=== PATIENT | male | born 1965 | race Caucasian/White ===

== ENCOUNTER → 2017-02-12 | Outpatient (CLI) | payer MEDICARE, MEDICAID ==
[~2017-02-12] VITALS: Ht 188 cm; Wt 113.6 kg
[~2017-02-12] MED LIST: ACET-44 PO; ACET500T67 PO; AMLO5TAB2 PO; ASCO-296 PO; CALC-524 PO; CHLO4TAB28 PO; CLOT15CR64 TOP; DIPH25CA6 PO; LISI1TAB13 PO; LOPE2TAB24 PO; MAGN400O4 PO; MULT1TAB58 PO; REGADENOSON 0.4mg/5ml INJECTION IV ONE; RISP0.5T14 PO; SALINE FLUSH 10ml SYRINGE ONE; VITA-282 PO; [UNRECOGNIZED DRUG - CODE] PO; [UNRECOGNIZED DRUG - CODE] PO
--- NOTE | 2017-02-14 07:52 | ESTF ---
DATE 02/12/[address] Sandee Madrigal PROCEDURE Stress nuclear scan. INDICATION Atypical chest pain. DESCRIPTION OF PROCEDURE The patient was injected with technetium-99m Myoview dose of 13 mCi at rest. The patient was unable to fully exercise on treadmill dues to shuffling gait. He was injected with Lexiscan with a low-level exercise and did not experience any angina. Lexiscan dose of 0.4 mg followed by technetium-99m Myoview dose of 30.4 mCi. Stress and rest perfusion images were obtained per protocol. Blood pressure was 118/77, heart rate of 84 beats per minute. Blood pressure katt to 129/76. Heart rate katt to 147 beats per minute which is 87% of age-predicted maximum heart rate. Rest EKG showed normal sinus rhythm, nonspecific ST-T abnormality in lateral and inferolateral distribution. Subsequently during the stress test and extending into three minutes of recovery, there was up to [address] segment depression in V2 through V6. The patient did have a run of ventricular bigeminy. ST depression was horizontal. There was no associated chest pain or palpitations and he was asymptomatic. Stress and perfusion images were reviewed. Technical quality is somewhat limited by motion artifact, particularly present on stress images. There were no significant perfusion defects identified. No evidence of ischemia, reversible ischemia or scar. Normal contractility. Normal ejection fraction, measured 54% on stress images and 72% on rest images. TID ratio appears visually normal. Unable to measure due to motion artifact. No abnormal extracardiac uptake was identified. IMPRESSION: 1. Inability to fully exercise on treadmill. 2. Pharmacological/low-level exercise stress nuclear scan clinically negative for angina. 3. Electrically positive with up to [address] segment depression as described above that persisted into recovery and was associated with a run of ventricular bigeminy. Patient was asymptomatic however. 4. Stress and rest perfusion images do not show any significant perfusion defect. There was motion artifact present, however. 5. Gated images show normal wall motion, normal contractility. DISCUSSION AND PLAN Will discuss results with the patient regarding further management. [facility]
== END ==
LOC: IMA 08:57
PROVIDERS: ATTEND Internal Medicine Cardiovascular Disease
DX: R94.39 Abnormal result of other cardiovascular function study (principal); R26.2 Difficulty in walking, not elsewhere classified; I10 Essential (primary) hypertension
CPT/HCPCS: 78452; 93017; A9502; J2785

== ENCOUNTER 2017-02-22 09:32 | Emergency (ER) | payer MEDICARE, MEDICAID ==
[~2017-02-22] VITALS: Ht 188 cm; Wt 97.6 kg
[~2017-02-22 09:32] MED LIST changes: -REGADENOSON 0.4mg/5ml INJECTION IV ONE; -SALINE FLUSH 10ml SYRINGE ONE
--- OUTSIDE RECORDS SUMMARY | 2017-02-22 09:37 | XMS REPORT | Referral Summary ---
Author Author [facility] Organization [facility] Address Unknown Phone Unavailable Care Team Providers Care Solar Sales Consultant Name Role Phone Silvino Madrigal Primary Care Physician [phone] Encounter VC Date(s): 07/22/15 - 07/22/15 [facility] [address] [place] [id number] Discharge Disposition: 01-Home or Self Care Attending Physician: Sandee Madrigal MD Admitting Physician: Sandee Madrigal MD Vital Signs No data available for this section Problem List Condition Effective Dates Status Health Status Informant Allergic rhinitis Active (disorder)(Confirmed ) back pain with Resolved scoliosis(Confirmed) Backache Active (finding)(Confirmed) Essential Active hypertension(Confirm ed) Fragile X syndrome Active (disorder)(Confirmed ) Fragile X Resolved syndrome(Confirmed) Idiopathic scoliosis Active AND/OR kyphoscoliosis (disorder)(Confirmed ) 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)(Confirmed ) Moderate mental Resolved retardation(Confirme d) Obesity(Confirmed) Active patient Shoulder joint pain Active (finding)(Confirmed) Athlete's Active foot(Confirmed) Allergies, Adverse Reactions, Alerts No Known Medication Allergies Medications Cerovite Advanced Formula 1 tabs, Oral, Daily, 0 Refill(s) Start Date: 04/26/14 Status: Ordered Claritin 10 mg oral tablet 10 mg 1 tabs, Oral, Daily, # 30 tabs, 5 Refill(s), 1 tabs Oral Daily Start Date: 06/24/15 Status: Ordered clotrimazole 1% topical cream 1 martell, Topical, BID, x4 weeks, # 30 g, 1 Refill(s), Pharmacy: [facility] [place] Start Date: 06/15/15 Stop Date: 06/15/16 Status: Ordered diphenhydrAMINE 25 mg, Oral, q4hr, as needed for allergy symptoms, 0 Refill(s) Start Date: 04/26/14 Status: Ordered lisinopril-hydrochlorothiazide 20 mg-25 mg oral tablet 1 tabs, Oral, Daily, # 90 tabs, 1 Refill(s), Pharmacy: [facility] [place] Start Date: 04/05/15 Status: Ordered Maalox Antacid Barrier 500 mg oral tablet, chewable 2 tabs, Chewed, q4hr, 0 Refill(s) Start Date: 04/26/14 Status: Ordered Milk of Magnesia 30cc, Oral, Daily, as needed for constipation, 0 Refill(s) Start Date: 12/07/14 Status: Ordered Norvasc 5 mg oral tablet 5 mg 1 tabs, Oral, Daily, # 30 tabs, 5 Refill(s), Pharmacy: [facility] [place], 1 tabs Oral Daily Start Date: 04/05/15 Status: Ordered Oyster Shell 500 (1250 mg calcium carbonate) oral tablet 250 mg, Oral, Daily, # 30 Each, 0 Refill(s), Pharmacy: [facility] [place] , 250 mg Oral Daily Start Date: 06/17/15 Status: Ordered risperiDONE 0.5 mg oral tablet 1 tabs, Oral, BID, # 180 tabs, 0 Refill(s) Start Date: 04/26/14 Status: Ordered Tylenol Extra Strength 500 mg oral tablet 1,000 mg 2 tabs, Oral, TID, # 180 tabs, 0 Refill(s), Pharmacy: [facility] [place], 2 tabs Oral TID Start Date: 09/13/15 Status: Ordered Vitamin C 1,000 mg, Oral, Daily, 0 Refill(s) Start Date: 06/24/15 Status: Ordered vitamin E 400 intl units oral capsule 400 Intl_Units, Oral, Daily, # 30 caps, 0 Refill(s), Pharmacy: [facility] [place], 400 Intl_Units Oral Daily Start Date: 06/17/15 Status: Ordered Results No data available for this section Immunizations Vaccine Date Refusal Reason influenza virus vaccine, inactivated 08/25/14 influenza virus vaccine, live 09/01/13 pneumococcal 23-polyvalent vaccine 12/18/13 tetanus/diphtheria/pertussis, acel(Tdap) 11/02/13 tetanus-diphth toxoids (Td) adult/adol 07/28/02 Procedures Procedure Date Related Diagnosis Body Site Hernia repair Social History Social History Type Response Smoking Status Never smoker Assessment and Plan No data available for this section
--- OUTSIDE RECORDS SUMMARY | 2017-02-22 09:37 | XMS REPORT | Referral Summary ---
Author Author [facility] Organization [facility] Address Unknown Phone Unavailable Care Team Providers Care Seo Engineer Name Role Phone Silvino Madrigal Primary Care Physician [phone] Encounter Date(s): 06/24/15 - 06/24/15 [facility] [address] [place] [id number] Discharge Diagnosis: Athlete's foot Discharge Diagnosis: Mild mental retardation (I.Q. 50-70) Discharge Diagnosis: Essential hypertension Discharge Diagnosis: Allergic rhinitis Discharge Diagnosis: Diarrhea Discharge Diagnosis: Backache Discharge Disposition: 01-Home or Self Care Attending Physician: Tianna Herrera APRN Admitting Physician: Tianna Herrera APRN Vital Signs Most recent to 1 oldest [Reference Range]: Temperature Tympanic 36.3 degC [36.6-38.1 degC] *LOW* (06/24/15 10:31 AM) Peripheral Pulse 64 bpm Rate [60-100 bpm] (06/24/15 10:31 AM) Respiratory Rate 16 br/min [14-20 br/min] (06/24/15 10:31 AM) Blood Pressure 112/80 mmHg [90-140/60-90 mmHg] (06/24/15 10:31 AM) Problem List Condition Effective Dates Status Health [...] 30 g, 1 Refill(s), Pharmacy: [facility] [place] Start Date: 06/15/15 Stop Date: 06/15/16 Status: [...] Smoking Status Never smoker Assessment and Plan Extracted from: Title: Office Visit Note 6 mos Author: Tianna Herrera PACKAGE SEALER Date: check Assessment/Plan Allergic rhinitis stop allergy tab. Change to Claritin 10 mg daily. May cause less drowsiness. Ordered: Office Visit Level 4 Est 59328 Athlete's foot continue Lotrimin routinely. Ordered: Office Visit Level 4 Est 89990 Backache continue Tylenol thousand milligrams 3 times a day routinely. This is relatively safe long-term. DC prn tylenol. Recommend physical therapy evaluation and treatment for back pain. Ordered: Office Visit Level 4 Est 84514 Diarrhea today. Let me know if this persists. Ordered: Office Visit Level 4 Est 71352 Essential hypertension continue same. Request staff check blood pressure once a month. If greater than 150/90 let us know. due for fasting lipids and CMP. F/u in 6 mos Flu shot this fall. Ordered: Office Visit Level 4 Est 20992 Mild mental retardation (I.Q. 50-70) Cont care at [facility]. Ordered: Office Visit Level 4 Est 90850 Orders: acetaminophen, 1,000 mg 2 tabs, Oral, TID, # 180 tabs, 1 Refill(s), 2 tabs Oral TID loratadine, 10 mg 1 tabs, Oral, Daily, # 30 tabs, 5 Refill(s), 1 tabs Oral Daily
--- OUTSIDE RECORDS SUMMARY | 2017-02-22 09:37 | XMS REPORT | Continuity of Care Document ---
Author Author [facility] Address Unknown Phone Unavailable Support Name Relationship Address Phone JAY CHOU MD Caregiver [address] [place], [place] [address] GLO VELASCO Next Of Kin [address] [place] [address] Insurance Providers Payer Name Policy Number Subscriber Name Relationship Medicare A And B [id number] Guido Webb 18 Self / Same As Patient Advance Directives Directive Response Recorded Date/Time Advanced Directives No 04/14/16 10:36pm Chief Complaint and Reason for Visit Chief Complaint Pain Reason for Visit [id number] Problems Active Problems Medical Problem Onset Date Status Leg edema, left ~04/14/2016 Acute Medications Current Home Medications Medication Dose Units Route Directions Days/Qty Instructions Start Date Calcium Carbonate/Vitamin D3 1 Each 1 Each ORAL Daily 04/14/16 Multivitamin/Iron/Folic Acid 1 Each 1 Each ORAL Daily 04/14/16 Loratadine 10 Mg 10 Mg ORAL Daily 04/14/16 Ascorbate Calcium 500 Mg 500 Mg ORAL Daily 04/14/16 Acetaminophen (Tylenol) 500 Mg 1,000 Mg ORAL Three Times A Day 04/14 Risperidone 4 Mg Unknown Dose ORAL Twice A Day 04/14/16 Lisinopril/Hydrochlorothiazide 1 Each Unknown Dose ORAL Daily Amlodipine Besylate (Norvasc) 2.5 Mg Unknown Dose ORAL Daily 04/14 Cephalexin 500 Mg 500 Mg ORAL Three Times A Day 10 Days 04/15/16 Social History Query Response Start Date Stop Date Smoking Status Never smoker Hospital Discharge Instructions No hospital discharge instructions. Plan of Care Discharge Date 04/15/16 12:58am Disposition 01 HOME OR SELF-CARE Condition at Discharge Stable Instructions/Education Provided Leg Edema (ED) Prescriptions See Medication Section Additional Instructions/Education Elevate Left leg above level of heart as much as possible. Keflex 500mg as Rx'd, three times a day for 10 days. Return at 0715 Saturday morning (in 6 hours) for an ultrasound of Left leg, to rule out deep vein thrombosis (DVT). If ultrasound is Positive, he'll need to be admitted for a few days, for anticoagulation. If ultrasound is Negative (normal), he can go home and follow up with his regular PCP in 2 days. Some of your test results may not be complete prior to your leaving the Emergency Department. The Emergency Department is not authorized to give test results over the phone. Please contact the doctor's office listed in this packet of information for your final results. Follow up with your primary care physician or return to the Emergency Department for worsening or worrisome symptoms. * Emergency Department phone number: [phone], x [phone]* MEDICAL RECORD If you need copies of your X-rays, call [phone]. If you need copies of your medical record, including lab results, a signed authorization for release of records will be required. A telephone call for release of Health Information is not allowed. BILLING Billing can sometimes be confusing and frustrating. To help avoid confusion in the future, please take a moment to acquaint yourself with the billing parties for services. SERVICE BILLING DEMOCRAT Emergency Room Services [facility] Physician Services [facility] X-rays [place] [facility] Patients will receive bills for services from the appropriate provider. If you have any questions about your [facility] bill, our staff will be happy to assist you. Please call [phone], and ask for the billing department. THANK YOU for choosing [facility] as your emergency care provider! Care Plan and Goals ~~Discharge Care Plan~~ Problem: Edema, Left leg pain Goal: Edema will resolve and patient will be w/o pain. Instructions: Follow ED-Physician instructions, return in 0715 for Ultra sound of Left leg. Return to ER if pain increases, patient has SOA or chest pain. Call ED number on Education given if you have and questions. Functional Status No functional status results. Allergies, Adverse Reactions, Alerts No known allergies. Immunizations Name Given Type Status Date Influenza Vaccine Received if Current 08/06/15 Historical Historical Vital Signs Acute Vital Signs Vital Response Date/Time Temperature (Fahrenheit) 97.6 04/14/2016 10:36pm Pulse 88 bpm 04/15/2016 1:02am Respirations 04/15/2016 1:02am Height 6 ft 1 in Weight 231 lb Body Mass Index 30.0 kg/m^2 Results Laboratory Results Test Name Result Units Flags Reference Collection Date/Time Result Date/ Time Comments White Blood Count 6.96 10^3uL 4.0-11.0 04/14/2016 11:35pm 04/14/2016 11 :44pm Red Blood Count 4.61 10^6uL 4.50-5.50 04/14/2016 11:35pm 04/14/2016 11: 44pm Hemoglobin 14.4 g/dL 13.5-17.0 04/14/2016 11:35pm 04/14/2016 11:44pm Hematocrit 39.90 % 39.00-50.00 04/14/2016 11:35pm 04/14/2016 11:44pm Mean Corpuscular Volume 87 FL 80-100 04/14/2016 11:35pm 04/14/2016 11: 44pm Mean Corpuscular Hemoglobin 31.2 PG 26.0-34.0 04/14/2016 11:35pm 2015 11:44pm Mean Corpuscular Hemoglobin Concent 36.1 g/dL 31.0-37.0 04/14/2016 11: 35pm 04/14/2016 11:44pm Red Cell Distribution Width 11.6 % L 11.8-15.6 04/14/2016 11:35pm 2015 11:44pm Platelet Count 220 10^3uL 150-450 04/14/2016 11:35pm 04/14/2016 11: 44pm Mean Platelet Volume 10.5 FL H 6.0-9.5 04/14/2016 11:35pm 04/14/2016 11: 44pm Neutrophils (%) (Auto) 56 % 51-67 04/14/2016 11:35pm 04/14/2016 11: 44pm Lymphocytes (%) (Auto) 29 % 20-46 04/14/2016 11:35pm 04/14/2016 11: 44pm Monocytes (%) (Auto) 11 % 3-11 04/14/2016 11:35pm 04/14/2016 11:44pm Eosinophils (%) (Auto) 3 % 0-4 04/14/2016 11:35pm 04/14/2016 11:44pm Basophils (%) (Auto) 1 % 0-2 04/14/2016 11:35pm 04/14/2016 11:44pm Neutrophils # (Auto) 3.9 X10^3 04/14/2016 11:35pm 04/14/2016 11:44pm Lymphocytes # (Auto) 2.0 X10^3 04/14/2016 11:35pm 04/14/2016 11:44pm Monocytes # (Auto) 0.8 X10^3 04/14/2016 11:35pm 04/14/2016 11:44pm Eosinophils # (Auto) 0.2 10^3uL 04/14/2016 11:35pm 04/14/2016 11: 44pm Basophils # (Auto) 0.1 10^3uL 04/14/2016 11:35pm 04/14/2016 11:44pm Prothrombin Time 12.2 SEC 11.6-14.2 04/14/2016 11:35pm 04/15/2016 12: 12am Prothromb Time International Ratio 0.9 0.8-1.4 04/14/2016 11:35pm 12:12am D-Dimer 0.92 ug/mL *H 0.00-0.41 04/14/2016 11:35pm 04/15/2016 12:12am Results called to Leydi PEREZ in ER who read back the results. Called by Paulina Smith at 0012 Sodium Level 141 mmol/L 135-150 04/14/2016 11:35pm 04/15/2016 12:02am Potassium Level 3.8 mmol/L 3.5-5.1 04/14/2016 11:35pm 04/15/2016 12: 02am Chloride Level 106 mmol/L 98-108 04/14/2016 11:35pm 04/15/2016 12:02am Carbon Dioxide Level 25 mmol/L 22-29 04/14/2016 11:35pm 04/15/2016 12: 02am Anion Gap 13.8 MEQ/L 3-15 04/14/2016 11:35pm 04/15/2016 12:02am Blood Urea Nitrogen 21 mg/dL H 7-18 04/14/2016 11:35pm 04/15/2016 12: 02am Creatinine 0.63 mg/dL L 0.8-1.5 04/14/2016 11:35pm 04/15/2016 12:02am BUN/Creatinine Ratio 33 H 10-20 04/14/2016 11:35pm 04/15/2016 12:02am Estimat Glomerular Filtration Rate 162.5 04/14/2016 11:35pm 2015 12:02am Estimated GFR (Non- 134.3 04/14/2016 11:35pm 2015 12:02am Glucose Level 107 mg/dL 70-110 04/14/2016 11:35pm 04/15/2016 12:02am Calculated Osmolality 276 mosm/L L 280-300 04/14/2016 11:35pm 2015 12:02am Calcium Level 9.3 mg/dL 8.8-10.8 04/14/2016 11:35pm 04/15/2016 12:02am Calcium/Ionized Calcium Ratio 4.1 mg/dL 3.8-4.6 04/14/2016 11:35pm 12:02am Total Bilirubin 0.4 mg/dL 0.1-1.0 04/14/2016 11:35pm 04/15/2016 12: 02am Alkaline Phosphatase 78 U/L 38-126 04/14/2016 11:35pm 04/15/2016 12: 02am Aspartate Amino Transf (AST/SGOT) 23 U/L 15-37 04/14/2016 11:35pm 04/15 12:02am Alanine Aminotransferase (ALT/SGPT) 30 U/L 30-65 04/14/2016 11:35pm 12:02am Total Protein 7.0 g/dL 6.4-8.5 04/14/2016 11:35pm 04/15/2016 12:02am Albumin 4.4 g/dL 3.4-5.0 04/14/2016 11:35pm 04/15/2016 12:02am Albumin/Globulin Ratio 1.692 1.1-1.8 04/14/2016 11:35pm 04/15/2016 12 :02am C-Reactive Protein 0.80 mg/dL 0.0-0.9 04/14/2016 11:35pm 04/15/2016 12: 58am Procedures No known history of procedures. Encounters Encounter Location Arrival/Admit Date Discharge/Depart Date Attending Provider Departed Emergency Room [facility] 04/14/16 10:29pm 04/15/16 12: 58am JAY CHOU MD Recent Diagnosis
--- OUTSIDE RECORDS SUMMARY | 2017-02-22 09:37 | XMS REPORT | Continuity of Care Document ---
Author Author Damon Serrato MD [facility] Address [address] [place] [address] Aysha Renteria [facility] [place] [address] Phone Care Team Providers Care Nylon Winder Name Role Phone Damon Serrato PP Unavailable Payers Payer name Insurance type Covered alliance party ID Authorization(s) Unknown Problems Condition Effective Dates (start - stop) Clinical Status HTN (hypertension), benign - New onset Epistaxis - Episodic Backache - *Chronic Mild mental retardation - *Chronic Fragile x syndrome - *Chronic Backache - Chronic Mild mental retardation - Chronic Fragile x syndrome - Chronic Abnormal finding on EKG - Asymptomatic Obesity - *Chronic Skin lesion - *Worse Cerumen impaction - *Acute Mild mental retardation - *Chronic Backache - *Chronic Allergic rhinitis, cause unspecified - *Chronic Fragile x syndrome - *Chronic Mild mental retardation - Chronic Backache - Chronic Allergic rhinitis, cause unspecified - Chronic Fragile x syndrome - Chronic Backache - *Chronic Mild mental retardation - *Chronic Allergic rhinitis, cause unspecified - *Chronic Fragile x syndrome - *Chronic Fragile x syndrome - *Chronic Mild mental retardation - *Chronic Scoliosis (and kyphoscoliosis), idiopathic - *Chronic Backache, unspecified - *Chronic Pain in joint involving shoulder region - *Chronic Allergic rhinitis, cause unspecified - *Chronic NEED FOR PROPHYLACTIC VACCINATION WITH COMBINED [id number] ( DTP) (DTAP) VACCINE - Mild mental retardation - *Chronic Fragile x syndrome - *Chronic Backache - *Chronic Allergic rhinitis, cause unspecified - *Chronic Mild mental retardation - Chronic Fragile x syndrome - Chronic Backache - Chronic Allergic rhinitis, cause unspecified - Chronic Dermatophytosis of nail - *Chronic Pain in limb - *Chronic Family History Family Member Diagnosis Age At Onset Status Unknown Social History Social History Element Description Quantity Unknown Allergies, Adverse Reactions, Alerts Substance Reaction Severity Status Unknown Medications Medication Instructions Dosage Effective Dates (start - stop) Status piroxicam 20 mg capsule take 1 cap once a day with food for back pain and inflammation - Active lisinopril 20 mg-hydrochlorothiazide 12.5 mg tablet take 1 tablet by oral route every day 0 - Active chlorpheniramine 4 mg tablet take 1 tablet (4MG) by oral route 4 times every day as needed 4 MG - Active acetaminophen 500 mg tablet take 2 tabs three times a day for pain discomfort - Active Vitamin C 500 mg tablet take 2 tablets once a day for supplement 2010 - Active CertaVite with Lutein 18 mg-0.4 mg-250 mcg tablet take one tablet once a day for bitamin supplement - Active vitamin E 400 unit capsule take 1 capsule once a day for supplement - Active take 1 tablet once a day for calcium supplement - Active Vicks Babyrub topical ointment use prn as needed - Active risperidone 0.5 mg tablet take 1 Tablet (0.5MG) by oral route 2 times every day 0.5 MG - Active Immunizations Vaccine Date Status Comments Pneumo (2 yrs or older)(PPV) completed Td (adult) completed - Completed reason: Previously Given Tdap (Boostrix r) completed flu (split) (3 yrs or older) preservative free completed - Completed reason: public agency Results Test Name Date and Time Measure Units Reference Range Abnormal Flag Comments Panel Description: Urinalysis with Reflex Microscopic Site. 11:57:00 Midstream Color 11:57:00 Straw Clarity 11:57:00 Cloudy Volume Centrifuged 11:57:00 12 mls Specific [place]-C 11:57:00 1.015 1.005-1.025 pH-C 11:57:00 6.5 5.0-8.0 Leukocytes-C 11:57:00 100/ul Pily/uL Negative A Nitrites-C 11:57:00 pos Negative A Protein-C 11:57:00 neg mg/dL Negative FG-Wneptfl-X 11:57:00 norm mg/dL Normal Ketones-C 11:57:00 neg mg/dL Negative Urobilinogen-C 11:57:00 norm mg/dL Normal Bilirubin-C 11:57:00 neg mg/dL Negative Blood-C 11:57:00 neg Gurjit/uL Negative Panel Description: Urinalysis-Microscopic Site. 11:57:00 Midstream Mucus 11:57:00 1+ /lpf Trace-4+ WBC. 11:57:00 20-50 /hpf 0-5 A Bacteria 11:57:00 4+ /hpf None seen-1+ A Calcium Oxylate Crystals 11:57:00 Trace /hpf None seen A Panel Description: Microalbumin/Creatinine Ratio-AMS Creatinine mg/dL, Urine 11:57:00 150 mg/dL Albumin mg/dL, Urine 11:57:00 2.9 mg/dL 0.0-1.7 H Alb/Creat Ratio, Urine 11:57:00 19.3 mg/g 0.0-29.0 Testing performed at [facility] Reference Lab [address] [facility] [address] Nylon Mender Boris Spicer MD Vital Signs Date / Time: Height Weight Pulse Rate Blood Pressure Temperature /11:22:00 70.00 in 232.00 lbs 76 /min 146/104 mm[Hg] 98.5 F Procedures Procedure Date Unknown Encounters Encounter Location Date Patient Visit [facility] Patient Visit [facility] Patient Visit [facility] Patient Visit [facility] Patient Visit [facility] Patient Visit [facility] Patient Visit [facility] Patient Visit [facility] Patient Visit [facility] Advance Directives Directive Effective Date Unknown
--- OUTSIDE RECORDS SUMMARY | 2017-02-22 09:37 | XMS REPORT | Referral Summary ---
Author Organization Unknown Address Unknown Phone Unavailable Care Team Providers Care Seasonal Package Handler Name Role Phone Mikey Serrato Primary Care Physician [phone] Encounter VC Date(s): 12/07/14 - 12/07/14 [facility], Harry Family [address] [place] [id number] Discharge Diagnosis: Acute bronchitis Discharge Disposition: Home or Self Care Attending Physician: Damon Serrato MD Admitting Physician: Damon Serrato MD Vital Signs Most recent to 1 oldest [Reference Range]: Temperature Tympanic 36 degC [36.6-38.1 degC] *LOW* (12/07/14 10:44 AM) Peripheral Pulse 83 bpm Rate [60-100 bpm] (12/07/14 10:44 AM) Respiratory Rate 16 br/min [14-20 br/min] (12/07/14 10:44 AM) Blood Pressure 142/86 mmHg [90-140/60-90 mmHg] *HI* (12/07/14 10:44 AM) Most recent to 1 oldest [Reference Range]: SpO2 95 % (12/07/14 10:44 AM) Problem List Condition Effective Dates Status Health Status Informant Allergic rhinitis Active (disorder)(Confirmed ) back pain with Resolved scoliosis(Confirmed) Backache Active (finding)(Confirmed) Essential Active hypertension(Confirm ed) Fragile X Resolved syndrome(Confirmed) Fragile X syndrome Active (disorder)(Confirmed ) Idiopathic scoliosis Active AND/OR kyphoscoliosis (disorder)(Confirmed ) 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)(Confirmed ) Moderate mental Resolved retardation(Confirme d) Obesity(Confirmed) Active patient Shoulder joint pain Active (finding)(Confirmed) Allergies, Adverse Reactions, Alerts No Known Medication Allergies Medications Allergy Relief 4 mg, Oral, QID, 0 Refill(s) Start Date: 04/26/14 Status: Ordered Cerovite Advanced Formula 1 tabs, Oral, Daily, 0 Refill(s) Start Date: 04/26/14 Status: Ordered CertaVite with Antioxidants See Instructions, 1tabs Oral Daily(0.4 mg-18 mg), 0 Refill(s), Indication: bitamin supplement Special Instructions: 1tabs Oral Daily(0.4 mg-18 mg) Start Date: 05/07/14 Status: Ordered diphenhydrAMINE 25 mg, Oral, q4hr, as needed for allergy symptoms, 0 Refill(s) Start Date: 04/26/14 Status: Ordered lisinopril-hydrochlorothiazide 20 mg-25 mg oral tablet 1 tabs, Oral, Daily, # 90 tabs, 1 Refill(s), Pharmacy: [facility] Start Date: 11/15/14 Status: Ordered Maalox Antacid Barrier 500 mg oral tablet, chewable 2 tabs, Chewed, q4hr, 0 Refill(s) Start Date: 04/26/14 Status: Ordered Milk of Magnesia 30cc, Oral, Daily, as needed for constipation, 0 Refill(s) Start Date: 12/07/14 Status: Ordered Norvasc 5 mg oral tablet 1 tabs, Oral, Daily, # 30 tabs, 0 Refill(s) Start Date: 05/14/14 Status: Ordered Oyster Shell 1 tabs, Oral, Daily, 0 Refill(s) Start Date: 04/26/14 Status: Ordered risperiDONE 0.5 mg oral tablet 1 tabs, Oral, BID, # 180 tabs, 0 Refill(s) Start Date: 04/26/14 Status: Ordered Tylenol Extra Strength 500 mg, Oral, TID, as needed for pain, 0 Refill(s) Start Date: 04/26/14 Status: Ordered Vitamin C 500 mg, Oral, Daily, 0 Refill(s) Start Date: 04/26/14 Status: Ordered vitamin E 400 Intl_Units, Oral, Daily, 0 Refill(s) Start Date: 04/26/14 Status: Ordered Results No data available for this section Immunizations Vaccine Date Refusal Reason influenza virus vaccine, inactivated 08/25/14 influenza virus vaccine, live 09/01/13 pneumococcal 13-valent conjugate vaccine 12/18/13 tetanus/diphtheria/pertussis, acel(Tdap) 11/02/13 tetanus-diphth toxoids (Td) adult/adol 07/28/02 Procedures Procedure Date Related Diagnosis Body Site Hernia repair Social History Social History Type Response Smoking Status Never smoker Assessment and Plan Extracted from: Title: Office Visit Note Author: Damon Serrato MD Date: 12/07/14 Assessment/Plan Acute bronchitis The overall history and exam is consistent with bronchitis. I would recommend netipot sinus 2 to 3 x a day if you are having trouble with nasal drainage. Mucinex is ok for the cough. If you are not improving by next week call us. If you are experiencing any concerning symptoms call or go to the ER. I am adding some Zofran for nausea.
--- OUTSIDE RECORDS SUMMARY | 2017-02-22 09:37 | XMS REPORT | Continuity of Care Document ---
Author Author [facility] Address Unknown Phone Unavailable Care Team Providers Care Oliver Filter Operator Name Role Phone Damon Serrato PP Unavailable Payers Payer name Insurance type Covered democrat ID Authorization(s) Unknown Problems Condition Effective Dates (start - stop) Clinical Status Dermatophytosis of nail - *Chronic Pain in limb - *Chronic Skin lesion - *Worse Cerumen impaction - *Acute Mild mental retardation - *Chronic Backache - *Chronic Allergic rhinitis, cause unspecified - *Chronic Fragile x syndrome - *Chronic Mild mental retardation - Chronic Backache - Chronic Allergic rhinitis, cause unspecified - Chronic Fragile x syndrome - Chronic HTN (hypertension), benign - New onset Epistaxis - Episodic Backache - *Chronic Mild mental retardation - *Chronic Fragile x syndrome - *Chronic Backache - Chronic Mild mental retardation - Chronic Fragile x syndrome - Chronic Abnormal finding on EKG - Asymptomatic Obesity - *Chronic Backache - *Chronic Mild mental retardation - *Chronic Allergic rhinitis, cause unspecified - *Chronic Fragile x syndrome - *Chronic Fragile x syndrome - *Chronic Mild mental retardation - *Chronic Scoliosis (and kyphoscoliosis), idiopathic - *Chronic Backache, unspecified - *Chronic Pain in joint involving shoulder region - *Chronic Allergic rhinitis, cause unspecified - *Chronic NEED FOR PROPHYLACTIC VACCINATION WITH COMBINED [id number] ( DTP) (DTAP) VACCINE - Mild mental retardation - *Chronic Fragile x syndrome - *Chronic Backache - *Chronic Allergic rhinitis, cause unspecified - *Chronic Mild mental retardation - Chronic Fragile x syndrome - Chronic Backache - Chronic Allergic rhinitis, cause unspecified - Chronic Family History Family Member Diagnosis Age At Onset Status Unknown Social History Social History Element Description Quantity Unknown Allergies, Adverse Reactions, Alerts Substance Reaction Severity Status Unknown Medications Medication Instructions Dosage Effective Dates (start - stop) Status chlorpheniramine 4 mg tablet take 1 tablet [...] times every day 0.5 MG - Active lisinopril 20 mg-hydrochlorothiazide 12.5 mg tablet take 1 tablet by oral route every day 0 - Active piroxicam 20 mg capsule take 1 cap once a day with food for back pain and inflammation - Active Immunizations Vaccine Date Status Comments Pneumo (2 yrs or older)(PPV) completed Td (adult) completed - Completed reason: Previously Given Tdap (Boostrix r) completed flu (split) (3 yrs or older) preservative free completed - Completed reason: public agency Results Test Name Date and Time Measure Units Reference Range Abnormal Flag Comments Unknown Vital Signs Date / Time: Height Weight Pulse Rate Blood Pressure Temperature Unknown Procedures Procedure Date Unknown Encounters Encounter Location Date Patient Visit [facility] Patient Visit [facility] Patient Visit [facility] Patient Visit [facility] Patient Visit [facility] Patient Visit [facility] Patient Visit [facility] Patient Visit [facility] Patient Visit [facility] Advance Directives Directive Effective Date Unknown
--- OUTSIDE RECORDS SUMMARY | 2017-02-22 09:37 | XMS REPORT | Continuity of Care Document ---
Author Author [facility] Organization [facility] Address Unknown Phone Unavailable Allergies Active Description Code Type Severity Reaction Onset Reported/Identified Relationship to Patient Clinical Status Yes No Known Medication Allergies NKMA N/A N/A 04/26/2014 Medications Problems Procedures Results Encounters ACCT No. Visit Date/Time Discharge Status Pt. Type Provider Facility Loc./Unit Complaint [id number] 12/18/2013 11:09:00 12/18/2013 23 :59:59 [facility] Outpatient [id number] 11/23/2013 14:38:00 11/23/2013 23 :59:59 [facility]
--- OUTSIDE RECORDS SUMMARY | 2017-02-22 09:37 | XMS REPORT | Referral Summary ---
Author Organization Unknown Address Unknown Phone Unavailable Care Team Providers Care Building Construction Teacher Name Role Phone Mikey Serrato Primary Care Physician [phone] Encounter VC Date(s): 12/14/14 - 12/14/14 [facility]nutson, Harry Family [address] [place] [id number] Discharge Diagnosis: Acute bronchitis Discharge Disposition: Home or Self Care Attending Physician: Damon Serrato MD Admitting Physician: Damon Serrato MD Vital Signs Most recent to 1 oldest [Reference Range]: Temperature Tympanic 36.6 degC [36.6-38.1 degC] (12/14/14 1:09 PM) Peripheral Pulse 94 bpm Rate [60-100 bpm] (12/14/14 1:09 PM) Respiratory Rate 18 br/min [14-20 br/min] (12/14/14 1:09 PM) Blood Pressure 120/84 mmHg [90-140/60-90 mmHg] (12/14/14 1:09 PM) Most recent to 1 oldest [Reference Range]: SpO2 97 % (12/14/14 1:09 PM) Problem List Condition Effective Dates Status Health [...] 90 tabs, 1 Refill(s), Pharmacy: [facility] Start Date: 11/15/14 Status: Ordered Maalox Antacid [...] Visit Note Author: Damon Serrato MD Date: 12/14/14 Assessment/Plan Acute bronchitis Plan: I think he is a viral bronchitis. I'm placing him on Advair 250/50 one inhalation daily for up to 30 days. Once his cough stops we'll discontinue this. If he develops fever vomiting or any concerning signs or symptoms follow-up or call.
[2017-02-22 09:38] VITALS: Ht 188 cm; Wt 97.6 kg
[2017-02-22] MEDS ORDERED: METO-277 PO (09:58)
[2017-02-22] MEDS ORDERED: LORA10TA7 PO (09:58)
[2017-02-22] MEDS ORDERED: RISP1TAB27 PO (10:01)
[2017-02-22] MEDS ORDERED: BUME1TAB17 PO (10:01)
[2017-02-22] MEDS ORDERED: [UNRECOGNIZED DRUG - CODE] PO (10:05)
--- NOTE | 2017-02-22 10:20 | ERPDOC ---
Departure Disposition Decision Date: Feb 22, 2017 Disposition Decision Time: 11:32 Disposition: 01 DISCHARGED HOME, SELF-CARE Impression Impression Impression: Primary Impression: Contusion of forehead Additional Impression: Fall with injury Severity: Moderate Condition: Improved Seen By: Physician only Referrals: YOSVANY SALEEM MD (Family) Patient Instructions: Fall Prevention (ED) Problems/Meds/Labs Reviewed?: Yes Medications reviewed and manag: Yes Additional Instructions: Follow-up with your primary care provider as needed Follow up care ordered?: Yes Mental Status: Alert HPI - Fall/Injury General Chief Complaint: Fall Stated Complaint: FALL Time Seen by Provider: 10:18 HPI - Fall/Injury Initial Comments 52-year-old gentleman with a fall this morning. He tripped and fell forward, striking the ground with his head. He fell directly onto his face, did not get his arms out to protect himself in time. He was "loopy" afterwards, as described by a witness. She does not think he actually passed out, but she is uncertain. He does complain of generalized headache and pain upper teeth. No other injuries or complaints. He does have a history of MR, is incredibly pleasant and friendly, but is a poor historian. Allergies: Coded Allergies: No Known Allergies (Unverified , 07/20/15) Past History Past Medical History Metabolic: other Neurological: chronic disability Family History Family PMH: FOUND: other Vaccines Hx Influenza Vaccination: No (UNKNOWN) Social History Smoking Status: Never smoker Record Review Pertinent history updated: Yes Review of Systems ENMT Nose: see HPI Mouth/Throat: see HPI Teeth: see HPI Musculoskeletal General: see HPI All other Systems All Other Systems: Reviewed and Negative Physical Exam General General Nourishment: well nourished, well developed, appears stated age, no acute distress General Body Habitus: well groomed Vitals and Pain First Documented Vital Signs Date Time Temp Pulse Resp B/P Pulse Ox O2 Delivery O2 Flow Rate FiO2 02/22/17 09:38 98.3 90 16 102/61 97 Room Air Weight: Kilograms: Height (feet): 6 Height (inches): 2.00 Triage Pain Scale: Normal Exams: Eyes: Pupils are PERRLA w/ EOMI, No scleral icterus, irritation, or foreign bodies noted Chest/Resp: Clear all angeles, with good airflow, and symmetry bilaterally CV: Regular rate and rhythm, without murmur or gallop, Pulses 2+ all extremities, capillary refill, <2 seconds all ext., no pedal edema noted Abdomen: Bowel sounds positive, soft, non-tender, non-distended, no hepatosplenomegaly, masses or bruits noted ENMT (brief) Comments Slight bruising right upper lip, contusion on forehead. Differential Diagnoses Considering: Concussion, Contusion, CVA, Seizure, Vasovagal Progress Results/Orders Orders Procedure Category Date Status Time Ct Head W/O Contrast CT 02/22/17 Resulted 10:[address] had returned normal. Patient has a little bit of bruising of the right eye, otherwise looks good. He would like to leave and go home and I see no problem with this. He does have family that is watching over him. Head injury instructions given to the patient and his caregiver. SABRINA DO MD Feb 22, 2017 10:20
--- OUTSIDE RECORDS SUMMARY | 2017-02-22 10:23 | XMS REPORT | Continuity of Care Document ---
Author Author [facility] Organization [facility] Address Unknown Phone Unavailable Allergies Active Description Code Type Severity Reaction Onset Reported/Identified Relationship to Patient Clinical Status Yes No Known Medication Allergies NKMA N/A N/A 04/26/2014 Medications Problems Procedures Results Encounters ACCT No. Visit Date/Time Discharge Status Pt. Type Provider Facility Loc./Unit Complaint [id number] 12/18/2013 11:09:00 12/18/2013 23 :59:59 [facility] Outpatient [id number] 11/23/2013 14:38:00 11/23/2013 23 :59:59 [facility]
--- NOTE | 2017-02-22 10:30 | NUR ---
ACTIVITY PT AMB TO BR WITH HELP. STEADY ON FEET. VOIDED LARGE AMT. TOLERATED ACTIVITY WITHOUT SX. SAYS HE IS FEELING BETTER.
--- NOTE | 2017-02-22 10:45 | NUR ---
TO CT PER CART
--- NOTE | 2017-02-22 10:52 | NUR ---
RETURNED FROM CT
--- NOTE | 2017-02-22 10:52 | NUR ---
ROOM CHANGE TO [facility]AD[facility] BED 8 IN RECLINER WITH CAREGIVER
--- NOTE | 2017-02-22 10:58 | DI ---
Indication: ITS.REASON: fall, unprotected onto face. PROCEDURE: CT HEAD W/O CONTRAST: Encounter: Initial Comparison: None Technique: Axial CT images through the head were performed without contrast. Iterative Reconstruction dose reducing technique was utilized. FINDINGS: The ventricles are of normal size, shape, and configuration for the patient's age. There is no evidence of acute intracranial hemorrhage, midline displacement, or mass effect. The CT attenuation of the brain parenchyma is normal within the cerebellum, brain stem, and cerebral hemispheres. The tympanic cavities and mastoid air cells are free of appreciable disease. There are no definite fractures of the skull base, calvarium, or visualized portion of the midface. IMPRESSION: No CT evidence of acute traumatic intracranial injury. .
[2017-02-22 11:48] VITALS: BP 98/59; PULSE 72; RESP 16; TEMP 97.6; O2SAT 99
--- NOTE | 2017-02-22 11:48 | NUR ---
DISMISSAL INSTRUCTIONS REVIEWED. PT DISCHARGED WITH CAREGIVER.
== END 2017-02-22 11:48 | disposition home or self-care (01) ==
LOC: ED 09:32
DX: S00.83XA Contusion of other part of head, initial encounter (principal); S00.531A Contusion of lip, initial encounter; W01.0XXA Fall on same level from slipping, tripping and stumbling without subsequent striking against object, initial encounter; Y93.9 Activity, unspecified; Y92.9 Unspecified place or not applicable; Y99.8 Other external cause status

== ENCOUNTER → 2017-02-25 | Outpatient (CLI) | payer MEDICARE, MEDICAID ==
[~2017-02-25] MED LIST changes: -ACET-44 PO; -AMLO5TAB2 PO; +BUME1TAB17 PO; -CHLO4TAB28 PO; -CLOT15CR64 TOP; +LORA10TA7 PO; +METO-277 PO; -RISP0.5T14 PO; +RISP1TAB27 PO; +[UNRECOGNIZED DRUG - CODE] PO
--- NOTE | 2017-02-25 10:21 | DI ---
Indication: ITS.REASON: I87.2 Venous insufficiency (chronic) (peripheral) PROCEDURE: US VENOUS DUPLEX, LOWER EXT BI: Encounter: Initial Comparison: None Technique: Color Doppler duplex and grayscale sonographic imaging of both lower extremities was performed. Findings: There is no evidence for acute deep venous thrombosis in either thigh. Specifically, serial graded compression was performed from the inguinal ligament to the popliteal bifurcation, bilaterally, demonstrating appropriate compressibility of the deep venous system. In addition, color and pulsed Doppler demonstrate appropriate spontaneous flow, variation with respiration, and augmentation with calf compression. At the ankle, normal flow is identified in the posterior tibial veins; these vessels are also normal in caliber. Impression: No evidence of acute DVT in either lower limb. .
== END ==
LOC: IMA 09:39
PROVIDERS: ATTEND Internal Medicine Cardiovascular Disease
DX: I87.2 Venous insufficiency (chronic) (peripheral) (principal)